=== PATIENT | male | born 1965 | race Caucasian/White ===

== ENCOUNTER 2022-01-31 06:49 | Emergency (ER) | payer OTHER, BC ==
[2022-01-31] MEDS ORDERED: ZANAFLEX4 MG PO (09:06)
== END 2022-01-31 09:20 | disposition home or self-care (01) ==
LOC: ER1 06:49
DX: S52.602A Unspecified fracture of lower end of left ulna, initial encounter for closed fracture (principal); S59.002A Unspecified physeal fracture of lower end of ulna, left arm, initial encounter for closed fracture; S80.812A Abrasion, left lower leg, initial encounter; I25.2 Old myocardial infarction; I11.9 Hypertensive heart disease without heart failure; Z95.5 Presence of coronary angioplasty implant and graft; Z87.891 Personal history of nicotine dependence; V49.40XA Driver injured in collision with unspecified motor vehicles in traffic accident, initial encounter; Y92.410 Unspecified street and highway as the place of occurrence of the external cause
CPT/HCPCS: 70450; 73110; 90471; 90715; 99284